=== PATIENT | male | born 1990 | race Caucasian/White ===

== ENCOUNTER 2017-06-21 13:54 | Emergency (ER) | payer SELFPAY ==
[~2017-06-21] VITALS: Ht 172.7 cm; Wt 61.3 kg
[2017-06-21 14:04] VITALS: TEMP 36.8; O2SAT 95; Ht 172.7 cm; Wt 61.3 kg
[2017-06-21] MEDS ORDERED: SODIUM CHLORIDE 0.9% 1000ML 1,000 ML IV STA (14:09)
[2017-06-21] MEDS ORDERED: KETOROLAC TROMETHAMINE 30 MG/ML VIAL IV STA (14:09)
--- NOTE | 2017-06-21 14:12 | EMERGENCY ROOM VISIT NOTE ---
History Report prepared by Paty: Willie Carey Under the Supervision of: Dr. Carroll Bowers M.D. First contact with patient: 14:03 Chief Complaint: CHEST PAIN Stated Complaint: CHEST PAIN History of Present Illness The patient is a 26 year old male who presents to the Emergency Room with complaints of intermittent, central chest tightness beginning 30 minutes ago. He currently rates his discomfort a 5/10 in severity. The patient states he was driving and just finished a cigarette when his symptoms began. He reports he felt nauseous, short of breath, warm, and his vision started getting blurry. The patient notes the tips of his left fingers are numb as well. He states deep breathing mildly increases his discomfort. He denies feeling his heart racing or skipping, vomiting, leg pain, trauma, arm pain, neck pain, and back pain. The patient also denies a history of diabetes, lung problems, heart disease, and a family history of diseases. 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 Source of History: patient Onset: 30 minutes Position: chest (central) Symptom Intensity: 5/10 Quality: other (tightness) Timing: intermittent Modifying Factors (Worsening): breathing (deep) Associated Symptoms: + SOB, + nausea, + numbness (left finger tips), No neck pain, No vomiting, No back pain Note: Associated symptoms: feeling warm, blurry vision Denies: feeling his heart racing or skipping, leg pain, trauma, arm pain Review of Systems See HPI for pertinent positives & negatives. A total of 10 systems reviewed and were otherwise negative. Past Medical & Surgical Medical Problems: (1) No Known Active Medical Problems -Old medical records were reviewed. Nurse's notes were reviewed and I agree with. Family History Patient reports no known family medical history. Social History Smoking Status: Current Every Day Smoker Alcohol Use: occasionally Drug Use: none Marital Status: in relationship Occupation Status: employed Current/Historical Medications No Active Prescriptions or Reported Meds Allergies Coded Allergies: No Known Allergies (Unverified , 06/21/17) Physical Exam Vital Signs Date Time Temp Pulse Resp B/P (MAP) Pulse Ox O2 Delivery O2 Flow Rate FiO2 06/21/17 17:30 72 16 112/65 98 Room Air 06/21/17 16:40 68 16 111/51 98 Room Air 06/21/17 14:50 72 110/71 98 06/21/17 14:07 73 06/21/17 14:04 36.8 71 18 116/61 99 Room Air 06/21/17 14:04 95 Room Air Physical Exam General: Non-ill appearing slender, young male in no acute distress. HEENT: Normal cephalic atraumatic. Pupils are equal round and reactive to light. Extraocular movements are intact. Oropharynx is pink with moist mucous membranes. No swelling of the mouth lips or tongue. Neck: Supple with a midline trachea. No meningeal signs or stiffness, no JVD or bruits. No Stridor. Chest: Clear to auscultation bilaterally. No wheezes or rhonchi. No increased work of breathing. Heart: regular rate and rhythm. Abdomen: Soft nontender, nondistended without rebound guarding or rigidity. Extremities: No cyanosis clubbing or edema. No calf tenderness or assymetry Spine/Back. Non tender to palpation. No CVA tenderness Skin: Good turgor without rashes. Neurologic exam: Cranial nerves two through 12 are intact. Motor and sensation are intact and symmetrical throughout. Medical Decision & Procedures ER Provider Diagnostic Interpretation: Radiology results as stated below per my review and radiologist interpretation: Chest x-ray per my interpretation reveals no pneumothorax, failure, or infiltrate. SINGLE VIEW CHEST CLINICAL HISTORY: Atypical chest pain. FINDINGS: An AP, portable, upright chest radiograph is obtained. No prior studies are available for comparison at the time of dictation. The examination is degraded by portable technique and patient rotation. The cardiomediastinal silhouette is unremarkable. The lungs and pleural spaces are clear. No pneumothorax is seen. The bony thorax is grossly intact. IMPRESSION: No active disease in the chest. Electronically signed by: Noel Reynolds M.D. 06/21/2017 2:48 PM Dictated Date/Time: 06/21/2017 2:47 PM Laboratory Results 06/21/17 14:05 Red Blood Count 4.98, Mean Corpuscular Volume 86.7, Mean Corpuscular Hemoglobin 31.5, Mean Corpuscular Hemoglobin Concent 36.3, Mean Platelet Volume 10.1, Neutrophils (%) (Auto) 56.1, Lymphocytes (%) (Auto) 28.6, Monocytes (%) (Auto) 10.5, Eosinophils (%) (Auto) 4.1, Basophils (%) (Auto) 0.4, Neutrophils # (Auto ) 4.39, Lymphocytes # (Auto) 2.24, Monocytes # (Auto) 0.82, Eosinophils # (Auto ) 0.32, Basophils # (Auto) 0.03 06/21/17 14:05 Test 06/21/17 14:05 06/21/17 14:45 06/21/17 15:59 White Blood Count 7.82 K/uL (4.8-10.8) Red Blood Count 4.98 M/uL (4.7-6.1) Hemoglobin 15.7 g/dL (14.0-18.0) Hematocrit 43.2 % (42-52) Mean Corpuscular Volume 86.7 fL (80-100) Mean Corpuscular Hemoglobin 31.5 pg (25-34) Mean Corpuscular Hemoglobin Concent 36.3 g/dl (32-36) Platelet Count 246 K/uL (130-400) Mean Platelet Volume 10.1 fL (7.4-10.4) Neutrophils (%) (Auto) 56.1 % Lymphocytes (%) (Auto) 28.6 % Monocytes (%) (Auto) 10.5 % Eosinophils (%) (Auto) 4.1 % Basophils (%) (Auto) 0.4 % Neutrophils # (Auto) 4.39 K/uL (1.4-6.5) Lymphocytes # (Auto) 2.24 K/uL (1.2-3.4) Monocytes # (Auto) 0.82 K/uL (0.11-0.59) Eosinophils # (Auto) 0.32 K/uL (0-0.5) Basophils # (Auto) 0.03 K/uL (0-0.2) RDW Standard Deviation 40.0 fL (36.4-46.3) RDW Coefficient of Variation 12.5 % (11.5-14.5) Immature Granulocyte % (Auto) 0.3 % Immature Granulocyte # (Auto) 0.02 K/uL (0.00-0.02) Anion Gap 9.0 mmol/L (3-11) Est Creatinine Clear Calc Drug Dose 114.2 ml/min Estimated GFR () 139.4 Estimated GFR (Non- 120.3 BUN/Creatinine Ratio 14.3 (10-20) Calcium Level 9.1 mg/dl (8.5-10.1) Magnesium Level 2.0 mg/dl (1.8-2.4) Total Bilirubin 0.5 mg/dl (0.2-1) Direct Bilirubin < 0.1 mg/dl (0-0.2) Aspartate Amino Transf (AST/SGOT) 19 U/L (15-37) Alanine Aminotransferase (ALT/SGPT) 19 U/L (12-78) Alkaline Phosphatase 94 U/L (45-117) Total Creatine Kinase 229 U/L (39-308) Creatine Kinase MB 1.7 ng/ml (0.5-3.6) Creatine Kinase MB Ratio 0.7 (0-3.0) Total Protein 7.4 gm/dl (6.4-8.2) Albumin 4.3 gm/dl (3.4-5.0) Lipase 96 U/L (73-393) Bedside D-Dimer 54 ng/mlFEU (0-450) Bedside Troponin I < 0.030 ng/ml (0-0.045) Laboratory studies as stated above per my review. Medications Administered Medications (Trade) Dose Ordered Sig/Heather Route Start Time Stop Time Status Last Admin Dose Admin Sodium Chloride 1,000 ml @ 999 mls/hr Q1H1M STAT IV 06/21/17 14:09 06/21/17 15:09 DC 06/21/17 14:33 999 MLS/HR Ketorolac Tromethamine (Toradol Inj) 30 mg NOW STAT IV 06/21/17 14:09 06/21/17 14:11 DC 06/21/17 14:33 30 MG Aspirin (Aspirin Chew) 324 mg NOW STAT PO 06/21/17 15:11 06/21/17 15:13 DC 06/21/17 15:22 324 MG ECG Indication: chest pain Rate (beats per minute): 66 Rhythm: normal sinus Findings: PVC (occasional), no acute ischemic change, other (normal intervals) Comparison ECG Date: 10/08/10 Change: Change: PVC now noted Second EKG in the second visit: Normal sinus with a rate of 78. No ischemic change. - No change to prior. ED Course 1405: Past medical records reviewed. The patient was evaluated in room A11B, and a complete history and physical examination were performed. 1409: Ordered Toradol Inj 30mg IV, Sodium Chloride 1000 ml @ 999 mls/hr IV 1454: I reevaluated the patient. He is resting comfortably with mild discomfort. He denied further medication. I discussed his current exam findings with him and his . 1510: I reevaluated the patient. He is still experiencing his symptoms and agreed to an Aspirin. The patient notes his symptoms are mainly present when he takes a breath or sits up. 1511: Ordered Aspirin 324mg PO 1541: I reevaluated the patient. The patient is having another ECG performed. 1746: Upon reevaluation, the patient is resting and feeling better. I discussed the results and treatment plan with him. He verbalized agreement of the treatment plan. The patient was discharged home. Medical Decision Differentials include, but are not limited to; acute coronary syndrome, arrhythmia, PE, musculoskeletal chest pain, GERD, electrolyte metabolic abnormality. This patient comes in as described above. He was placed in room 11. He had episode of chest pain and sharp and intermittent. He appears in no distress. Stable vital signs. There's been no trauma. EKG was obtained which shows occasional PVC but no acute ischemic changes and nothing to suggest significant arrhythmia or acute coronary syndrome. IV access established multiple blood testing was obtained. He was given Toradol 30 mg IV as well as a small fluid IV bolus. Chest x-ray was obtained. Chest x-ray was unremarkable. Based second EKG was unremarkable as well no change compared to the first. He had 2 troponins that were both negative and done 3 hours apart. His d-dimer was negative and in a pretest probability setting, this makes PE highly unlikely. His pain is worse with movement and breathing and palpation. I think it most likely is more musculoskeletal/costochondritis. He can use ibuprofen 400 mg every 6 hours return if: increasing pain, worsening of symptoms, fever or chills , any new problems or oncerns. He was happy the plan and discharged to home. Medication Reconcilliation Current Medication List: was personally reviewed by me Blood Pressure Screening Patient's blood pressure: Normal blood pressure Blood pressure disposition: Did not require urgent referral Impression Primary Impression: Precordial chest pain Scribe Attestation The scribe's documentation has been prepared under my direction and personally reviewed by me in its entirety. I confirm that the note above accurately reflects all work, treatment, procedures, and medical decision making performed by me. Departure Information Dispostion Home / Self-Care Prescriptions No Active Prescriptions or Reported Meds Referrals No Doctor, Assigned (PCP) Forms HOME CARE DOCUMENTATION FORM, IMPORTANT VISIT INFORMATION Patient Instructions My [facility] Additional Instructions Rest. Drink plenty of fluids. Return if: Increasing pain, worsening of symptoms, any new problems or concerns Use ibuprofen 400 mgs every 6 hours as needed, take with food Follow-up with your doctor in 1-2 days recheck.
[2017-06-21 14:18] LABS: BASO % 0.4 %; BASO ABS # 0.03 K/uL (0-0.2); COMPLETE YES; EOS % 4.1 %; HEMATOCRIT 43.2 % (42-52); IG% 0.3 %; LYMPH % 28.6 %; LYMPH ABS # 2.24 K/uL (1.2-3.4); MEAN CELL VOLUME 86.7 fL (80-100); MEAN CORPUSCULAR HEMOGLOBIN 31.5 pg (25-34); MEAN CORPUSCULAR HGB CONC 36.3 g/dl (32-36); MEAN PLATELET VOLUME 10.1 fL (7.4-10.4); MONO % 10.5 %; NEUT % 56.1 %; PLATELET COUNT 246 K/uL (130-400); RED BLOOD COUNT 4.98 M/uL (4.7-6.1); WHITE BLOOD COUNT 7.82 K/uL (4.8-10.8)
[2017-06-21 14:42] LABS: ALKALINE PHOSPHATASE 94 U/L (45-117); ALT/SGPT 19 U/L (12-78); AST/SGOT 19 U/L (15-37); CKMB/CK RATIO 0.7 (0-3.0)
--- NOTE | 2017-06-21 14:49 | DIAGNOSTIC IMAGING REPORT ---
SINGLE VIEW CHEST CLINICAL HISTORY: Atypical chest pain. FINDINGS: An AP, portable, upright chest radiograph is obtained. No prior studies are available for comparison at the time of dictation. The examination is degraded by portable technique and patient rotation. The cardiomediastinal silhouette is unremarkable. The lungs and pleural spaces are clear. No pneumothorax is seen. The bony thorax is grossly intact. IMPRESSION: No active disease in the chest. Electronically signed by: Noel Reynolds M.D. 06/21/2017 2:48 PM Dictated Date/Time: 06/21/2017 2:47 PM
[2017-06-21 15:01] LABS: BUN/CREATININE RATIO 14.3 (10-20); CALCIUM 9.1 mg/dl (8.5-10.1); CREATININE 0.85 mg/dl (0.60-1.40); POTASSIUM 3.4 mmol/L (3.5-5.1)
[2017-06-21 15:04] LABS: POINT OF CARE TROPONIN I < 0.030 ng/ml (0-0.045)
[2017-06-21] MEDS ORDERED: ASPIRIN 81 MG CHEW PO STA (15:11)
[2017-06-21 17:30] VITALS: BP 112/65; PULSE 72; O2SAT 98
== END 2017-06-21 17:56 | disposition home or self-care (01) ==
LOC: C.EDB 13:55 → C.EDA 17:56
DX: R07.2 Precordial pain (principal); F17.210 Nicotine dependence, cigarettes, uncomplicated

== ENCOUNTER 2017-06-25 11:24 | Emergency (ER) | payer SELFPAY ==
[~2017-06-25] VITALS: Ht 172.7 cm; Wt 57.8 kg
[2017-06-25 11:32] VITALS: TEMP 36.8; Ht 172.7 cm; Wt 57.8 kg
[2017-06-25] MEDS ORDERED: XYLOCAINE 1%/SOD BICARB 20 ML VIAL INFIL ONE (11:45)
[2017-06-25] MEDS ORDERED: HYDROCODONE/ACETAMOPHEN 5/325MG TAB PO STA (12:05)
--- NOTE | 2017-06-25 12:14 | EMERGENCY ROOM VISIT NOTE ---
ED Visit Note First contact with patient: 11:35 CHIEF COMPLAINT: Lip laceration and broken tooth HISTORY OF PRESENT ILLNESS: This 26-year-old male presents the ER with chief complaint of a laceration to his left as well as a broken tooth. The patient states that he was working on a riding lawnmower when the tia came back and hit him in the left side of his mouth. The patient states it broke off one of his upper teeth on the left side as well as lacerated his upper lip just at the corner. The patient's tetanus are up-to-date. REVIEW OF SYSTEMS: 6 system review was performed and was negative unless stated otherwise in history of present illness. PMH: The patient is healthy; there is no significant medical or surgical history. SOCIAL HISTORY: Patient lives with his family. The patient most tobacco use but denies any alcohol use. PHYSICAL EXAM: Vital Signs: Were reviewed Reviewed Nurse's notes. GENERAL: 26- year-old male appears in no acute distress. MENTAL Status: Alert and oriented 3. MOUTH: The patient has a 1 cm laceration of the upper lip with mild active bleeding. The patient has poor dental hygiene. Multiple teeth are decayed and some of them are missing. There is a left upper tooth that is broken off at the gumline. EMERGENCY DEPARTMENT COURSE: The patient was evaluated. The patient was given Roscoe 5/325 mg one tablet by mouth for pain. The patient was given dental wax to put over the broken tooth. PROCEDURE: Wound Repair: Complexity: Basic. Verbal consent was obtained after the risks and benefits were explained, including but not limited to bleeding, scarring, infection, pain, and bone/joint /nerve damage. The skin was prepped with betadine and a sterile field set. The wound was anesthetized with 1.0 ml of 1% buffered lidocaine. With direct pressure the bleeding subsided. Copious irrigation was performed using sterile saline. The wound was explored for foreign bodies and none found. Debridement was not performed. The deep tissue was approximated with one single 6-0 Vicryl suture. The wound edges were then approximated using 6-0 plain gut absorbable gut with 3 simple interrupted sutures. Hemostasis and excellent approximation was achieved. Antibacterial ointment and a sterile dressing applied. Detailed wound care instructions and signs and symptoms of infection reviewed with the patient. No complications and the patient tolerated the procedure well. DIAGNOSIS: 1 cm upper Lip laceration Fractured tooth DISCHARGE INSTRUCTIONS: Ibuprofen 600 mg every 6 hours with food for pain. Take Roscoe as needed for more severe pain. Do not drive while taking the Roscoe. Take amoxicillin as prescribed. Use dental wax over the broken tooth until evaluated by a dentist or oral surgeon. Call dentist or oral surgeon first thing Tuesday morning for definitive care of the tooth. You do not need to return for suture removal. The sutures will absorb on their own. Any signs of infection, seek further medical attention. Current/Historical Medications No Active Prescriptions or Reported Meds Allergies Coded Allergies: No Known Allergies (Unverified , 06/21/17) Vital Signs Date Time Temp Pulse Resp B/P (MAP) Pulse Ox O2 Delivery O2 Flow Rate FiO2 06/25/17 11:32 36.8 78 18 110/67 97 Room Air Departure Information Prescriptions No Active Prescriptions or Reported Meds Referrals No Doctor, Assigned (PCP) Patient Instructions [facility]
[2017-06-25] MEDS ORDERED: HYDR-5688 PO (12:16)
[2017-06-25] MEDS ORDERED: AMOX500C3 PO (12:16)
[2017-06-25 12:29] VITALS: BP 112/65; PULSE 78; O2SAT 97
== END 2017-06-25 12:27 | disposition home or self-care (01) ==
LOC: C.EDB 11:24 → C.EDD 12:27
DX: S01.511A Laceration without foreign body of lip, initial encounter (principal); S02.5XXA Fracture of tooth (traumatic), initial encounter for closed fracture; W24.0XXA Contact with lifting devices, not elsewhere classified, initial encounter; F17.200 Nicotine dependence, unspecified, uncomplicated